=== PATIENT | male | born 1990 | race Caucasian/White ===

== ENCOUNTER → 2019-10-27 | Outpatient (CLI) | payer SELFPAY ==
--- NOTE | 2019-10-27 16:48 | KCIC ---
Coronary artery calcium score dated October 27, 2019. No comparison available. Clinical Indication: Family history of early coronary artery disease. Calcium screening. Technical factors: Computed tomography of the heart was performed with ECG gating, suspended respiration and without the administration of contrast material. Post processing was performed on the 3-D computer workstation using diastolic phase images to measure the amount of coronary vascular calcium. Scoring was acquired using the [place] Method. PQRS compliance Statement One or more of the following individualized dose reduction techniques were utilized for this study: 1. Automated exposure control 2. Adjustment of the mA and/or kV according to patient size 3. Use of iterative reconstruction technique Results: Thorax: No significant abnormality is identified in the lungs or mediastinum. Note that this CT exam is limited to the heart and adjacent structures. Coronary arteries: Left main coronary artery: 0. Left anterior descending coronary artery: 0. Left circumflex coronary artery: 0. Right coronary artery: 0. Total coronary artery calcium score: 0. Calcium is absent. Coronary vascular calcium is not detected with this exam. This does not absolutely rule out the presence of atherosclerotic plaque, including unstable plaque, but does imply a very low likelihood of significant luminal narrowing or obstruction. A negative test may be consistent with a low risk of cardiovascular event in the next 2 to 5 years. CONCLUSION: Normal study, no coronary artery calcium identified. Electronically signed by: Germán Hale MD (10/27/2019 4:46 PM) [id number]
== END | disposition home or self-care (01) ==
LOC: KCIC CT 14:50
PROVIDERS: ATTEND Internal Medicine Cardiovascular Disease
DX: Z13.6 Encounter for screening for cardiovascular disorders (principal); Z82.49 Family history of ischemic heart disease and other diseases of the circulatory system
CPT/HCPCS: 75571